=== PATIENT | male | born 1975 | race Caucasian/White ===

== ENCOUNTER 2021-04-13 16:07 | Emergency (ER) | payer BC, SELFPAY ==
[2021-04-13 16:15] VITALS: BP 139/80; PULSE 98; RESP 18; TEMP 36.5; O2SAT 99
--- NOTE | 2021-04-13 16:15 | DI.RAD_ITS ---
Exam(s) XR LUMBAR SPINE COMPLETE EXAM: XR LUMBAR SPINE COMPLETE CLINICAL HISTORY: Lower back pain. TECHNIQUE: 2D digital imaging was performed. COMPARISON: No exams were available for comparison FINDINGS: There is no evidence of fracture or listhesis. No pars defects. Main finding here is advanced disc space narrowing at L5-S1 level. Mild disc space narrowing at L 4- 5. Anterior osseous lipping at L3-4. Small bony excrescence seen coming off the anterior superior a spect of L4. No obvious facet arthropathy. No scoliosis. Sacroiliac joints appear unremarkable. IMPRESSION: Degenerative disc disease. If clinically indicated follow-up MRI can be performed. DATA REPOSITORY: RADIATION DOSE DELIVERED:
--- NOTE | 2021-04-13 16:30 | ED.GENADUL_ITS ---
Discharge Plan Disposition Patient Disposition: HOME Condition: Stable Discharge Details Clinical Impression: Lumbar back pain Primary Care Provider: Unknown,Unknown ED Provider: Elizabeth Khanna Home Meds and New Rx's Prescriptions: New tramadol 50 mg tablet 50 mg PO TID PRN (Reason: pain) Qty: 7 RF: 0 Continued insulin glargine 100 unit/mL Cartridge 76 unit SUBCUT DAILY AM RF: 0 ibuprofen 800 mg Tablet 800 mg PO PRN PRNRF: 0 cyclobenzaprine 5 mg Tablet 10 mg PO PRN PRNRF: 0 gabapentin 300 mg Tablet 900 mg PO BID RF: 0 Discharge Instructions Instructions: Low Back Strain (ED) Additional Instructions: Alternate ice and heat. X-rays show some degenerative changes. Take the tramadol with food up to 3 times daily as needed. Do not drive or operate heavy machinery while taking this medication. Continue to take the muscle relaxer as previously prescribed. Follow up with primary care provider in 3-5 days. Return to ED sooner if any worsening or concerns. Increase oral fluids. Please take Tylenol or Ibuprofen with food every 4-6 hours as needed for pain and swelling. Medical Decision Making 45-year-old male presents to the ER with chief complaint of lower lumbar pain which has been present for approximately 2-1/2 weeks. Patient reports that he was stretching in bed when he felt a pop and since then has had lower back pain. He denies any radiation into his lower extremities however states that he always has neuropathy so is hard to tell. He denies any loss of bowel or bladder control, no saddle anesthesia no constipation or urinary hesitancy. He has been taking ibuprofen and Flexeril with little to no relief. He last took a Flexeril approximately 3 hours prior to arrival. Reports he was seen at [facility] and had x-rays done but not heard back from the results. She has no other associated symptoms. Does have a past medical history of insulin-dependent diabetes and is a non-smoker. L-spine Xrays ordered, Topical lidocaine patch, Robaxin, and Toradol. EXAM: XR LUMBAR SPINE COMPLETE CLINICAL HISTORY: Lower back pain. TECHNIQUE: 2D digital imaging was performed. COMPARISON: No exams were available for comparison FINDINGS: There is no evidence of fracture or listhesis. No pars defects. Main finding here is advanced disc space narrowing at L5-S1 level. Mild disc space narrowing at L 4-5. Anterior osseous lipping at L3-4. Small bony excrescence seen coming off the anterior superior aspect of L4. No obvious facet arthropathy. No scoliosis. Sacroiliac joints appear unremarkable. IMPRESSION: Degenerative disc disease. If clinically indicated follow-up MRI can be performed. Discussed x-ray results with patient who verbalized understanding. He reports no significant improvement with Robaxin. Patient given tramadol tablets to go and a prescription for tramadol due to patient driving herself to the department. Instructed on home care including alternating ice and heat and follow-up with PCP. This text was generated using [employer] system, please disregard any oddities of phrase or misspellings. HPI General Mode of arrival: ambulatory . Date/Time Provider Initiated Documentation: 04/13/21 16:19 . Limitations to Documentation: no limitations . Information obtained by: patient and RN notes reviewed . HPI Narrative: 45-year-old male presents to the ER with chief complaint of lower lumbar pain which has been present for approximately 2-1/2 weeks. Patient reports that he was stretching in bed when he felt a pop and since then has had lower back pain. He denies any radiation into his lower extremities however states that he always has neuropathy so is hard to tell. He denies any loss of bowel or bladder control, no saddle anesthesia no constipation or urinary hesitancy. He has been taking ibuprofen and Flexeril with little to no relief. He last took a Flexeril approximately 3 hours prior to arrival. Reports he was seen at [facility] and had x-rays done but not heard back from the results. She has no other associated symptoms. Does have a past medical history of insulin-dependent diabetes and is a non-smoker. Related Data Home Medications Medication Instructions Recorded Confirmed cyclobenzaprine 10 mg PO PRN PRN 04/13/21 04/13/21 gabapentin 900 mg PO BID 04/13/21 04/13/21 ibuprofen 800 mg PO PRN PRN 04/13/21 04/13/21 insulin glargine 76 unit SUBCUT DAILY AM 04/13/21 04/13/21 tramadol 50 mg PO TID PRN #7 tab 04/13/21 Previous Rx's Medication Instructions Recorded tramadol 50 mg PO TID PRN #7 tab 04/13/21 Allergies Allergy/AdvReac Type Severity Reaction Status Date / Time No Known Allergies Allergy Unverified 04/13/21 16:25 General Stated Complaint: Nk/Back Pain [place]: 4 Review of Systems All systems reviewed & are unremarkable except as noted in HPI and below ENT Ears, Nose, Mouth, and Throat: Denies neck pain Musculoskeletal Musculoskeletal: Reports back pain, Denies neck pain, Denies numbness, Reports stiffness and Denies tingling Neurologic Neurologic: Denies numbness and Denies tingling [facility] Active Problem List (Updated 04/13/21 @ 17:21 by Elizabeth Khanna) Lumbar back pain (Acute) Social History Smoking/Tobacco Use Status: Never Smoking risk assessment performed?: Yes Alcohol Intake: never Drug use: Never Substance use type: marijuana Do you feel safe at home: Yes Do you feel safe in your relationship?: Yes Exam Back/Spine/Pelvis Back: no CVA tenderness Cervical Spine: normal cervical lordosis and cervical ROM normal Thoracic/Lumbar Spine: paraspinal tenderness, No thoracic spinal tenderness and lumbar spinal tenderness Pelvis: no pain with anterior-posterior compression Course Vital Signs Vital signs: Vital Signs Temperature 36.5 C 04/13/21 16:15 Pulse 98 H 04/13/21 16:15 Respiratory Rate 18 04/13/21 16:15 Blood Pressure 139/80 04/13/21 16:15 Pulse Oximetry 99 04/13/21 16:15 Temperature 36.5 C 04/13/21 16:15 Temperature Source Temporal Artery Scan 04/13/21 16:15 Pulse 98 H 04/13/21 16:15 Respiratory Rate 18 04/13/21 16:15 Respiratory Effort 04/13/21 16:23 Blood Pressure 139/80 04/13/21 16:15 Blood Pressure Position Sitting 04/13/21 16:15 Pulse Oximetry 99 04/13/21 16:15 Oxygen Delivery Method Room Air 04/13/21 16:15 Oxygen Flow Rate 0 04/13/21 16:15 Pain Level 10 04/13/21 16:25
[2021-04-13] MEDS: Ketorolac 10 MG TAB PO (16:59)
[2021-04-13] MEDS: Lidocaine 5% Patch 1 PATCH TP (17:00)
[2021-04-13] MEDS: Methocarbamol 500 MG TAB (17:03)
[2021-04-13] MEDS: Acetaminophen 500 MG TAB 1000 MG PO (17:24)
--- NOTE | 2021-04-13 17:25 | DI.VRAD_ITS ---
PROCEDURE INFORMATION: Exam: XR Lumbosacral Spine Exam date and time: 04/13/2021 4:31 PM Age: 45 years old Clinical indication: Low back pain TECHNIQUE: Imaging protocol: XR of the lumbosacral spine. Views: 4 or 5 views. COMPARISON: No relevant prior studies available. FINDINGS: Bones/joints: Normal. No acute or chronic fracture. Normal alignment. Disc space narrowing is present L5-S1. The other disc spaces are preserved. No facet joint hypertrophy. Soft tissues: Unremarkable. IMPRESSION: Disc space narrowing localized to the L5-S1 level. Dictated and Authenticated by: Timmy Garcia MD. Ordering:CARLOTA Johnson MD
== END 2021-04-13 17:32 | disposition home or self-care (01) ==
PROVIDERS: Emergency Provider Registered Nurse Emergency
DX: M54.50 Low back pain, unspecified (principal)
CPT/HCPCS: 99283; 72110